=== PATIENT | female | born 1955 | race Caucasian/White ===

== ENCOUNTER 2023-01-29 10:09 | Outpatient (CLI) | payer BC | END 2023-01-29 10:10 | disposition home or self-care (01) | LOC: SCSMRI 10:09 | PROVIDERS: ATTEND Nurse Practitioner Family | DX: S49.91XA Unspecified injury of right shoulder and upper arm, initial encounter (principal); S46.911A Strain of unspecified muscle, fascia and tendon at shoulder and upper arm level, right arm, initial encounter; S43.431A Superior glenoid labrum lesion of right shoulder, initial encounter; M77.8 Other enthesopathies, not elsewhere classified; M19.011 Primary osteoarthritis, right shoulder ==